=== PATIENT | female | born 2000 | race Caucasian/White ===

== ENCOUNTER 2023-05-11 18:55 | Inpatient (IN) ==
[2023-05-11 19:41] LABS: Urine Appearance Cloudy; Urine Bilirubin Negative (Negative); Urine Blood Negative (Negative); Urine Color Yellow; Urine Glucose Negative (Negative); Urine Ketones Trace (Negative); Urine Nitrite Negative (Negative); Urine Protein Negative (Negative); Urine Specific Gravity 1.014 (1.002-1.030); Urine Urobilinogen Negative (Negative)
[2023-05-11 19:56] LABS: Urine Benzodiazepine Screen None Detected (None Detect); Urine Cannabinoids Screen Presumptive Positive (None Detect); Urine Opiates Screen None Detected (None Detect)
[2023-05-12] MEDS ORDERED: Al Hydrox/Mg Hydrox/Simet LIQ 30 ML UDC PO PRN (03:53)
[2023-05-12] MEDS: Vitamin THERAPEUTIC TAB PO SCH (09:47)
[2023-05-13 08:38] LABS: HDL Cholesterol 68.3 mg/dL
[2023-05-13] MEDS: Vitamin THERAPEUTIC TAB PO SCH (09:30)
[2023-05-13] MEDS: Ondansetron ODT 4 mg TAB 4 MG TAB PO PRN ×2 (15:20→16:00)
[2023-05-14] MEDS: Ondansetron ODT 4 mg TAB 4 MG TAB PO PRN (09:14)
[2023-05-14] MEDS: Vitamin THERAPEUTIC TAB PO SCH (09:14)
[2023-05-14 12:53] LABS: ALT 8 U/L (7-52); AST 15 U/L (13-39); Albumin 4.6 g/dL (3.2-5.2); Albumin/Globulin Ratio 1.6 (1-3); Alkaline Phosphatase 46 U/L (35-149); Anion Gap 11 mmol/L (2-16); Blood Urea Nitrogen 15 mg/dL (6-24); CO2 Carbon Dioxide 23 mmol/L (22-32); Calcium 9.3 mg/dL (8.6-10.3); Chloride 104 mmol/L (101-111); Creatinine, Serum 0.67 mg/dL (0.51-0.95); Globulin 2.9 g/dL (2-4); Glucose 78 mg/dL (70-100); Potassium 3.6 mmol/L (3.5-5.0); Sodium 138 mmol/L (135-145); Total Protein 7.5 g/dL (6.4-8.9); eGFR CKD-EPI 127.4 (>60)
[2023-05-14 13:03] LABS: HCG Pregnancy < 0.60 mIU/mL
[2023-05-14 13:24] LABS: TSH Ultra Thyroid Stim Horm 0.72 mcIU/mL (0.34-5.60)
[2023-05-14 16:38] LABS: ABS Lymphocytes 1.9 10^3/uL (1.0-4.8); ABS Monocytes 0.6 10^3/uL (0.0-0.9); ABS Neutrophils 4.4 10^3/uL (1.5-7.6); Eosinophil % 0.2 %; Hematocrit 39.7 % (35-45); Hemoglobin 13.7 g/dL (11.5-14.3); Mean Corpuscular Hemoglobin 30.5 pg (27-33); Mean Corpuscular Hgb Conc 34.4 g/dL (31-36); Mean Corpuscular Volume 88.7 fL (80-97); Mean Platelet Volume 9.1 fL (7.5-11.2); Platelet Count 262 10^3/uL (150-450); Red Blood Count 4.48 10^6/uL (3.63-4.92); Red Cell Distribution Width 14.8 % (12-17); White Blood Count 6.9 10^3/uL (3.8-11.8)
[2023-05-14] MEDS: Doxepin 10 mg CAP (NF) PO SCH (21:33)
[2023-05-15] MEDS: Vitamin THERAPEUTIC TAB PO SCH (09:37)
[2023-05-15] MEDS: Doxepin 10 mg CAP (NF) PO SCH (21:37)
[2023-05-16] MEDS: Vitamin THERAPEUTIC TAB PO SCH (10:23)
[2023-05-16] MEDS: Doxepin 10 mg CAP (NF) PO SCH (22:33)
[2023-05-17] MEDS: buPROPion SR 100 mg TAB.SR PO SCH (11:51)
[2023-05-17] MEDS: Vitamin THERAPEUTIC TAB PO SCH (11:54)
[2023-05-17] MEDS: Doxepin 10 mg CAP (NF) PO SCH (21:32)
[2023-05-18] MEDS: buPROPion SR 100 mg TAB.SR PO SCH (09:15)
[2023-05-18] MEDS: Vitamin THERAPEUTIC TAB PO SCH (09:15)
[2023-05-18] MEDS: Doxepin 10 mg CAP (NF) PO SCH (22:21)
[2023-05-19] MEDS: Vitamin THERAPEUTIC TAB PO SCH (08:56)
[2023-05-19] MEDS: buPROPion SR 100 mg TAB.SR PO SCH (08:56)
[2023-05-19 09:47] VITALS: BP 122/60
== END 2023-05-19 11:00 | disposition home or self-care (01) | DRG 753 ==
LOC: ED 18:55 → EDHOLD 05-12 03:30 → BSU 05-12 05:51
PROVIDERS: ADMIT Internal Medicine; ATTEND Psychiatry & Neurology Psychiatry